=== PATIENT | female | born 1990 | race Caucasian/White ===

== ENCOUNTER 2017-03-23 02:34 | Emergency (ER) | payer OTHER ==
[~2017-03-23] VITALS: Ht 160 cm; Wt 95.5 kg
[2017-03-23 02:37] VITALS: Ht 160 cm; Wt 95.5 kg
--- NOTE | 2017-03-23 02:53 | ERA ---
ER Documentation Chief Complaint Date/Time DATE: 03/23/17 TIME: 02:53 Chief Complaint c/o RUQ pain radiating to back. (+) N/V. HPI The patient is 26-year-old female, presenting with recurrent right upper quadrant abdominal pain around 9 PM after she at around 6 pm. She had similar symptoms previously from gallbladder attack. She complains of vomiting initially food and phlegm, denies fever, dysuria, diarrhea, constipation. she does not smoke nor drink. Past medical history: History of choledocholithiasis, cholelithiasis Past surgical history: ERCP, sphincterotomy with stone removal, 2 ROS All systems reviewed and are negative except as per history of present illness. Medications Home Meds Active Scripts Ibuprofen* (Motrin*) 600 Mg Tab, 600 MG PO Q6, #20 TAB Prov:ROBERTO GARDNER MD 03/23/17 Hydrocodone/Acetaminophen ([place] 5-325 Tablet) 1 Each Tablet, 1 TAB PO Q6H Y for PAIN, #7 TAB Prov:ROBERTO GARDNER MD 03/23/17 Allergies Allergies: Coded Allergies: No Known Allergy (Unverified , 02/25/17) PMhx/Soc History of Surgery: Yes Anesthesia Reaction: No Hx Neurological Disorder: No Hx Respiratory Disorders: No Hx Cardiac Disorders: No Hx Psychiatric Problems: No Hx Miscellaneous Medical Probl: No Hx Alcohol Use: No Hx Substance Use: No Hx Tobacco Use: No Physical Exam Vitals Vital Signs Date Time Temp Pulse Resp B/P Pulse Ox O2 Delivery O2 Flow Rate FiO2 03/23/17 05:28 98.2 72 16 120/56 100 Room Air 03/23/17 05:24 98.3 69 16 119/56 100 Room Air 03/23/17 03:34 98.1 82 18 128/71 98 Room Air 03/23/17 02:37 98.5 90 18 127/72 98 Physical Exam Const: No acute distress. Head: Atraumatic. Eyes: Normal Conjunctiva. ENT: Normal External Ears, Nose and Mouth. Neck: Full range of motion. No meningismus. Resp: Clear to auscultation bilaterally. Cardio: Regular rate and rhythm. Abd: Soft, non distended, normal bowel sounds, Minimal right upper quadrant abdominal tenderness, no right lower quadrant, rigidity, rebound, CVA tenderness Skin: No petechiae or rashes. Back: No midline or flank tenderness. Ext: No cyanosis, or edema. Neur: Awake and alert. No focal deficit Psych: Normal Mood and Affect. Result Diagram: 03/23/17 03303/23/17 033 Results 24 hrs Laboratory Tests Test 03/23/17 03:16 03/23/17 03:30 Bedside Urine pH (LAB) 7.0 Bedside Urine Protein (LAB) 1+ Bedside Urine Glucose (UA) Negative Bedside Urine Ketones (LAB) Negative Bedside Urine Blood Negative Bedside Urine Nitrite (LAB) Negative Bedside Urine Leukocyte Esterase (L Negative White Blood Count 10.510^3/ul Red Blood Count 4.2010^6/ul Hemoglobin 12.2g/dl Hematocrit 36.6% Mean Corpuscular Volume 87.1fl Mean Corpuscular Hemoglobin 29.0pg Mean Corpuscular Hemoglobin Concent 33.3g/dl Red Cell Distribution Width 13.2% Platelet Count 37375^3/UL Mean Platelet Volume 10.4fl Neutrophils % 74.2% Lymphocytes % 19.1% Monocytes % 4.5% Eosinophils % 1.3% Basophils % 0.5% Nucleated Red Blood Cells % 0.0/100WBC Neutrophils # 7.810^3/ul Lymphocytes # 2.010^3/ul Monocytes # 0.510^3/ul Eosinophils # 0.110^3/ul Basophils # 0.110^3/ul Nucleated Red Blood Cells # 0.010^3/ul Sodium Level 144mmol/L Potassium Level 3.8mmol/L Chloride Level 108mmol/L Carbon Dioxide Level 26mmol/L Anion Gap 14 Blood Urea Nitrogen 12mg/dl Creatinine 0.67mg/dl Glucose Level 105mg/dl Calcium Level 9.5mg/dl Total Bilirubin 0.1mg/dl Direct Bilirubin 0.00mg/dl Indirect Bilirubin 0.1mg/dl Aspartate Amino Transf (AST/SGOT) 36IU/L Alanine Aminotransferase (ALT/SGPT) 40IU/L Alkaline Phosphatase 106IU/L Total Protein 8.1g/dl Albumin 4.5g/dl Globulin 3.60g/dl Albumin/Globulin Ratio 1.25 Lipase 67U/L Current Medications Medications (Trade) Dose Ordered Sig/Wanda Route PRN Reason Start Time Stop Time Status Last Admin Dose Admin Sodium Chloride (NS) 1,000 ml @ 1,000 mls/hr Q1H ONCE IV 03/23/17 03:00 03/23/17 03:59 DC 03/23/17 03:40 Morphine Sulfate (morphine) 2 mg ONCE ONCE IV 03/23/17 03:00 03/23/17 03:01 DC 03/23/17 03:40 Ondansetron HCl (Zofran Inj) 4 mg ONCE STAT IV 03/23/17 02:56 03/23/17 02:57 DC 03/23/17 03:40 Hydromorphone HCl (Dilaudid) 1 mg ONCE ONCE IV 03/23/17 04:14 03/23/17 04:15 DC 03/23/17 04:22 Ondansetron HCl (Zofran Inj) 4 mg ONCE ONCE IV 03/23/17 04:14 03/23/17 04:15 DC 03/23/17 04:22 Procedures/MDM MEDICAL MAKING DECISION: The patient is a 26-year-old female, presenting with acute biliary colic. She was treated with 1 L normal saline for clinical dehydration, morphine 2 mg IV, Dilaudid 1 mg IV for pain and Zofran 4 mg IV for now stable with good response. The differential diagnoses considered include but are not limited to cholelithiasis, cholecystitis, cystitis, pancreatitis, hepatitis, gastritis, peptic ulcer disease, gastric ulcer, appendicitis, diverticulitis, cholangitis, choledocholithiasis, partial small bowel obstruction. Departure Diagnosis: Primary Impression: Biliary colic Condition: Good Comments She was discharged with Motrin and [place] I discussed the findings with the patient. I advised the patient to follow-up with her general surgeon in about 1-2 days, sooner if needed and return if any concern. ROBERTO GARDNER MD Mar 23, 2017 02:53
[2017-03-23] MEDS ORDERED: ONDANSETRON 4 MG INJ IV STA (02:56)
[2017-03-23] MEDS ORDERED: morphine 2 MG INJ IV ONE (03:00)
[2017-03-23] MEDS ORDERED: SOD CHLORIDE 0.9% 1,000 ML IV ONE (03:00)
[2017-03-23 03:09] LABS: URINE BLOOD (Dip) POC Negative (NEGATIVE)
[2017-03-23 03:42] LABS: BASOPHIL # 0.1 10^3/ul (0.0-0.1); BASOPHILS % 0.5 % (0.0-2.0); EOSINOPHILS # 0.1 10^3/ul (0.0-0.5); EOSINOPHILS % 1.3 % (0.0-7.0); HEMATOCRIT 36.6 % (37.0-47.0); HEMOGLOBIN 12.2 g/dl (12.0-16.0); LYMPHOCYTES % 19.1 % (15.0-51.0); MEAN CORPUSCULAR HGB CONC 33.3 g/dl (32.0-37.0); MEAN CORPUSCULAR VOLUME 87.1 fl (82.0-101.0); MEAN PLATELET VOLUME 10.4 fl (7.4-10.4); MONOCYTE # 0.5 10^3/ul (0.3-0.9); MONOCYTES % 4.5 % (0.0-11.0); NEUTROPHIL # 7.8 10^3/ul (1.6-7.5); NEUTROPHILS % 74.2 % (39.0-77.0); PLATELET COUNT 311 10^3/UL (140-415); RED CELL DISTRIBUTION WIDTH 13.2 % (11.5-14.5); WHITE BLOOD COUNT 10.5 10^3/ul (4.8-10.8)
[2017-03-23 04:03] LABS: ALBUMIN 4.5 g/dl (3.3-4.9); ALBUMIN/GLOBULIN RATIO 1.25; BILIRUBIN,INDIRECT 0.1 mg/dl (0-1.1); BILIRUBIN,TOTAL 0.1 mg/dl (0.2-1.3); CALCIUM 9.5 mg/dl (8.4-10.2); CREATININE 0.67 mg/dl (0.44-1.00); POTASSIUM 3.8 mmol/L (3.5-5.1); TOTAL PROTEIN 8.1 g/dl (6.1-8.1)
[2017-03-23] MEDS ORDERED: ONDANSETRON 4 MG INJ IV ONE (04:14)
[2017-03-23] MEDS ORDERED: HYDROmorphONE 1 MG/ML SYG IV ONE (04:14)
[2017-03-23] MEDS ORDERED: HYDR-906 PO (05:07)
[2017-03-23] MEDS ORDERED: IBUP-1542 PO (05:08)
[2017-03-23 05:28] VITALS: BP 120/56; PULSE 72; RESP 16; TEMP 98.2
== END 2017-03-23 05:32 | disposition home or self-care (01) ==
LOC: E/R 02:34
DX: K80.50 Calculus of bile duct without cholangitis or cholecystitis without obstruction (principal)
CPT/HCPCS: 36415; 80053; 81003; 83690; 85025; 96374; 96375; 96376; J1170; J2270; J2405; J7030; Z7502

== ENCOUNTER 2017-03-26 01:59 | Inpatient (IN) | payer OTHER ==
[~2017-03-26] VITALS: Ht 162.6 cm; Wt 96.0 kg
[~2017-03-26 01:59] MED LIST: HYDR-906 PO; IBUP-1542 PO
[2017-03-26 02:02] VITALS: Ht 162.6 cm; Wt 96.0 kg
[2017-03-26] MEDS ORDERED: ONDANSETRON 4 MG INJ IV STA (02:14)
[2017-03-26] MEDS ORDERED: morphine 4 MG/ML VIAL IV STA (02:14)
[2017-03-26 02:29] VITALS: TEMP 98.3
[2017-03-26] MEDS ORDERED: HYDROmorphONE 1 MG/ML SYG IV STA (02:51)
[2017-03-26 03:00] LABS: BASOPHIL # 0.1 10^3/ul (0.0-0.1); BASOPHILS % 0.6 % (0.0-2.0); EOSINOPHILS # 0.2 10^3/ul (0.0-0.5); EOSINOPHILS % 1.7 % (0.0-7.0); HEMATOCRIT 35.9 % (37.0-47.0); HEMOGLOBIN 11.9 g/dl (12.0-16.0); LYMPHOCYTES # 2.5 10^3/ul (0.8-2.9); LYMPHOCYTES % 22.6 % (15.0-51.0); MEAN CORPUSCULAR HEMOGLOBIN 28.7 pg (29.0-33.0); MEAN CORPUSCULAR HGB CONC 33.1 g/dl (32.0-37.0); MEAN CORPUSCULAR VOLUME 86.5 fl (82.0-101.0); MEAN PLATELET VOLUME 10.3 fl (7.4-10.4); MONOCYTE # 0.6 10^3/ul (0.3-0.9); MONOCYTES % 5.5 % (0.0-11.0); NEUTROPHIL # 7.6 10^3/ul (1.6-7.5); NEUTROPHILS % 69.3 % (39.0-77.0); PLATELET COUNT 318 10^3/UL (140-415); RED BLOOD COUNT 4.15 10^6/ul (4.20-5.40); RED CELL DISTRIBUTION WIDTH 13.2 % (11.5-14.5)
[2017-03-26 03:26] LABS: ALBUMIN 4.4 g/dl (3.3-4.9); ALBUMIN/GLOBULIN RATIO 1.22; BILIRUBIN,INDIRECT 0.2 mg/dl (0-1.1); BILIRUBIN,TOTAL 0.2 mg/dl (0.2-1.3); CALCIUM 9.4 mg/dl (8.4-10.2); CREATININE 0.65 mg/dl (0.44-1.00); POTASSIUM 3.5 mmol/L (3.5-5.1)
[2017-03-26] MEDS ORDERED: HYDROmorphONE 2 MG/ML SYG IV STA (05:45)
--- NOTE | 2017-03-26 06:59 | HP ---
Date/Time of Note Date/Time of Note DATE: 03/26/17 TIME: 06:50 Assessment/Plan VTE Prophylaxis VTE Prophylaxis Intervention: SCD's Assessment/Plan Assessment/Plan 1. Abdominal pain, most likely from known cholelithiasis -N.p.o. with IV fluid -Pain management -Surgery consult was placed by ER, awaiting evaluation -Notes that the patient was recently admitted here a month ago and underwent ERCP with sphincterotomy and stone removal for a choledocholithiasis. Because of insurance reasons, plan at the time of discharge was for the patient to have outpatient cholecystectomy 2. Mild leukocytosis -See #1 HPI/ROS Admit Date/Time Admit Date/Time Hx of Present Illness This is a 26-year-old female with a history of cholelithiasis and choledocholithiasis who presented to the emergency department complaining of right upper quadrant abdominal pain of 2 days duration. Reported associated nausea and nonbloody nonbilious emesis. Denied fever, chills, shortness of breath or chest pain. Patient was admitted here last month for cholelithiasis and choledocholithiasis. The patient underwent a ERCP with a sphincterotomy and stone removal on 02/27/2017. The plan was for the patient to have a laparoscopic cholecystectomy. However, because of insurance reasons, the patient could not undergo her surgery at [facility]. Consequently, the patient was discharged home to be followed up with outpatient surgery as per the discretion of the patient's insurance. The patient actually came to our ER 3 days ago with similar symptom and was discharged with instruction to follow-up with surgeon for outpatient cholecystectomy. When she presented to the ER today, vitals were stable. Labs shows a WBC of 11 otherwise CBC and CMP within acceptable range. PMH/Family/Social Past Medical History Medical History: gallstones Past Surgical History Past Surgical Hx: other (ERCP with sphincterotomy and stone removal, 2) Social History Alcohol Use: none Smoking Status: Never smoker Drug Use: none Exam/Review of Systems Vital Signs Vitals Vital Signs Date Time Temp Pulse Resp B/P Pulse Ox O2 Delivery O2 Flow Rate FiO2 03/26/17 02:29 98.3 65 16 117/65 98 Room Air Exam Constitutional: alert, oriented, well developed Head: atraumatic, normocephalic Eyes: EOMI, PERRL Respiratory: clear to auscultation, normal air movement Cardiovascular: nl pulses, regular rate and rhythm Gastrointestinal: soft, tender Extremities: normal pulses Labs Result Diagram: 03/26/1723903/26/170 GILMA FERGUSON MD Mar 26, 2017 06:59
[2017-03-26 08:49] VITALS: BP 120/79; RESP 18
[2017-03-26] MEDS ORDERED: morphine 4 MG/ML VIAL IV PRN (09:30)
[2017-03-26] MEDS ORDERED: ONDANSETRON 4 MG INJ IV PRN (09:30)
[2017-03-26] MEDS: SOD CHLORIDE 0.9% 1,000 ML IV SCH ×3 (09:39→18:40)
[2017-03-26 11:40] LABS: ADD UMIC YES; UR AMORPHOUS CRYSTAL MODERATE /HPF (NONE SEEN); UR ASCORBIC ACID NEGATIVE (NEGATIVE); UR BILIRUBIN (Dip) NEGATIVE (NEGATIVE); UR BLOOD (Dip) NEGATIVE (NEGATIVE); UR CLARITY CLOUDY (CLEAR); UR COLOR YELLOW (YELLOW); UR GLUCOSE (Dip) NEGATIVE (NEGATIVE); UR KETONES (Dip) TRACE mg/dL (NEGATIVE); UR LEUKOCYTE ESTERASE (Dip) NEGATIVE Leu/ul (NEGATIVE); UR MUCUS FEW /HPF (NONE SEEN); UR NITRITE (Dip) NEGATIVE (NEGATIVE); UR RBC 0 /HPF (0-5); UR SPECIFIC GRAVITY (Dip) 1.019 (1.003-1.030); UR SQUAMOUS EPITHELIAL CELL FEW /HPF (FEW); UR TOTAL PROTEIN (Dip) NEGATIVE (NEGATIVE); UR UROBILINOGEN (Dip) NEGATIVE (NEGATIVE)
--- NOTE | 2017-03-26 12:12 | RADRPT ---
PROCEDURE: US Abdomen (right upper quadrant). CLINICAL INDICATION: Right upper quadrant abdomen pain. TECHNIQUE: Multiple real-time longitudinal and transverse images of the right upper quadrant of th e abdomen were acquired utilizing a curved array transducer. Images were reviewed on a high-resoluti on PACS workstation. COMPARISON: None FINDINGS: The liver is mildly enlarged measuring 18 cm in length. Color Doppler and pulsed Doppler sonography demonstrate normal antegrade flow in the portal vein. There is no focal hepatic lesion. There are small gallstones in the gallbladder. There is no gallbladder wall thickening or fluid arou nd the gallbladder. The bile ducts are dilated with the common bile duct measuring 8.8 mm in diameter. The visualized portions of the pancreas are unremarkable with obscuration of the tail of the pancrea s. No free fluid is present. The right kidney measures 11.9 x 4.5 cm. There is normal echogenicity of the right kidney. There is no perinephric fluid collection. No hydronephrosis, mass, or calculus is seen. IMPRESSION: 1. Mild hepatomegaly. 2. Small gallstones in the gallbladder. 3. No evidence of cholecystitis. 4. Dilated bile ducts. Correlation with MRCP should be considered. 5. Otherwise unremarkable study. RPTAT: QQ .Asael Medina MD, MD Date Time Electronically viewed and signed by .Asael Medina MD, on 03/26/2017 12:12 .R/
[2017-03-26 14:15] VITALS: BP 122/83; RESP 18
--- NOTE | 2017-03-26 16:32 | PN ---
Date/Time of Note Date/Time of Note DATE: 03/26/17 TIME: 16:29 Assessment/Plan Lines/Catheters IV Catheter Type (from Nrs): Peripheral IV Assessment/Plan Assessment/Plan [facility] Progress Note Date of Service: 03/26/2017 Place of service: [facility] 03/26/2017 Today's Assessment & Plan (please also see the end of this note that contains my initial consultation with the patient during her previous admission that contains pertinent information): Overall stable after admission for abdominal pain which is likely due to biliary system issues. Ultrasound does not show evidence of acute cholecystitis , but it does show dilated bile ducts and for this reason the admission is appropriate and she needs further workup would likely need for ERCP and involvement of Dr. Stiles from gastroenterology. I also strongly recommend that we schedule the patient for a laparoscopic cholecystectomy during this admission and not delay this procedure any longer. I explained the operation in detail as well as the risks, benefits and alternatives to the patient and her and answered all their questions to the best my ability. Patient and family appear to understand and agreed with plans. With above assessment, I've recommended the following for today: 1. Keep in-house and continue current cares 2. MRCP 3. Gastroneurology consultation (much appreciate Dr. Stiles's excellent input) 4. Laparoscopic cholecystectomy Thank you again for your great care of this very pleasant patient and wonderful family. If there are any questions, please feel free to call me at [phone]. Nature of presenting problem: High severity Please note that, given the multiple number of diagnoses or management options, the moderate to extensive amount and/or complexity of data needed to be reviewed , and moderate to high risk of complications and/or morbidity or mortality, this qualifies as high complexity type of decision-making. Disclaimer: Inadvertent spelling and grammatical errors are likely due to EHR/ dictation software use and do not reflect on the quality of delivered patient care. Also, please note that the electronic time recorded on this node does not necessarily reflect the actual time of the visit. Updated clinical summary: A very pleasant 26-year-old lady with choledocholithiasis and possible cholelithiasis versus gallbladder polyp. Status post ERCP with sphincterotomy and stone removal (no stent) [facility] 02/27/[address] Stiles. Discharged home 02/28/2017. Repeat ER visit without admission [facility] 03/23/2017. Repeat ER visit with admission to [facility] 03/26/2017. Comorbidities: 1. BMI 34.7 2. Choledocholithiasis with intrahepatic and extrahepatic bile duct dilatation. Status post ERCP with sphincterotomy and stone removal (no stent) [facility] 02/27/[address] Stiles. Discharged home 2016. Repeat ER visit without admission [facility] 2016. Repeat ER visit with admission to [facility] 2016. [facility] 03/26/17 IMPRESSION: 1. Mild hepatomegaly. ([facility] 03/26/17) 2. Small gallstones in the gallbladder. ([facility] 03/26/17) 3. No evidence of cholecystitis.([facility] 03/26/17) 4. Dilated bile ducts. Correlation with MRCP should be considered.([facility] ) 5. Otherwise unremarkable study. 3. Borderline cardiomegaly chest x-ray 02/23/2017 at [facility] 4. A0 5. Status post (2) Subjective: [No major events or complaints since admission except for her abdominal pain]; [ mild to severe abd pain and under semi-adequate control with medications; no n/v /d; no sob or cp; + flatus; + BM and normal; + activity] Objective: Vitals: See below I's & O's: See below Exam: GENERAL: On exam, the patient was lying in bed and appeared to be [comfortable and in no acute distress]. ABDOMEN: [Soft, mild to moderately tender in the right upper quadrant and nondistended.] [There are no peritoneal signs or guarding.] SKIN: Skin appears to be pink and feels warm to touch. NEUROLOGIC: Patient is [awake, alert, and follows commands appropriately.] Labs: See below The following is my initial consultation note with pertinent information about the patient's history and physical which I am including in this note. [facility] INPATIENT CONSULTATION NOTE DATE OF SERVICE: 02/26/2017 PLACE OF SERVICE: [facility], floor ASSESSMENT AND PLAN: A very-pleasant 26-year-old young lady with a few comorbidities including BMI 34.7, admitted with choledocholithiasis, intrahepatic and extrahepatic bile duct dilatation and abnormal liver function and injury parameters reminiscent of symptomatic choledocholithiasis. There may also be cholelithiasis although I do not believe that the patient has acute cholecystitis. Patient certainly can benefit from ERCP and common bile duct clearance, to be followed by elective or semielective laparoscopic cholecystectomy. We will attempt to do this tomorrow pending patient's clinical condition. I discussed all of this with the patient and her and answered all of their questions to the best of my ability. Patient and her appear to understand and agreed with the plans. With above assessment, I've recommended the followin. Continue current cares 2. ERCP 3. Lap félix scheduled for 02/27/2017 in the morning pending clinical stability Thank you very much for having me involved in the care of this very pleasant patient and wonderful family. If you have any questions, please feel free to contact me at [phone]. Nature of presenting problem: low, moderate, high severity Please note that, given the minimal, limited, multiple, extensive number of diagnoses or management options, the minimal or none, limited, moderate, extensive amount and/or complexity of data needed to be reviewed, and minimal, low, moderate, high risk of complications and/or morbidity or mortality, this qualifies as straightforward, low complexity, moderate complexity, high complexity type of decision-making. Disclaimer: Inadvertent spelling and grammatical errors are likely due to EHR/ dictation software use and do not reflect on the quality of delivered patient care. Also, please note that the electronic time recorded on this node does not necessarily reflect the actual time of the visit. Updated clinical summary: A very pleasant 26-year-old lady with choledocholithiasis and possible cholelithiasis versus gallbladder polyp. Comorbidities: 1. BMI 34.7 2. Choledocholithiasis with intrahepatic and extrahepatic bile duct dilatation 3. Borderline cardiomegaly chest x-ray 02/23/2017 at [facility] 4. A0 5. Status post (2) CONSULTATION REQUESTED BY: GUERITA Madera HISTORY OF PRESENT ILLNESS: The patient is a very pleasant 26-year-old lady with above-mentioned comorbidities whom we were kindly asked consult regarding management of her choledocholithiasis and possible cholelithiasis. Patient experienced abdominal pain that brought her to [facility] on 02/22/2017 with admission. Associated nausea and vomiting noted. No diarrhea or constipation or other changes to bowel or bladder habits. No blood in the stool or urine. Pain was in the right upper quadrant and without radiation. No prior similar episodes in the past. Workup included an MRCP which demonstrated stones within bile duct with intrahepatic and extrahepatic bile duct dilatation. There are also a few small areas in the gallbladder that could be gallstones versus gallbladder polyps. Patient left AMA from [facility] and came to [facility] do the previous relationships with us from her time of . No major complaints during my visit. Laboratory values at [facility] showed slightly elevated total bilirubin of 1.8 that decreased to 0.9 on hospital day #2, alkaline phosphatase 168, AST 195, and ALT 434. Albumin after hydration was 3.7 ALLERGIES: NO KNOWN DRUG ALLERGIES MEDICATIONS Documented in the electronic records and reviewed by me. Please see the electronic records for details, as well as details for inpatient medications which were also reviewed by me. SOCIAL HISTORY: The patient lives with family that includes her and their [id number]-cit child and 4-year-old child.-Tob;-ETOH;-IVDU FAMILY HISTORY: There are no significant medical, surgical or oncologic issues in the family as reported by the patient or reflected in the chart. REVIEW OF SYSTEMS: Other than mentioned above, there were no other pertinent positives or pertinent negatives in an otherwise complete 14 point review of systems. PHYSICAL EXAMINATION GENERAL: The patient appears to be a very pleasant lady of descent lying in bed, appearing stated age, and otherwise in no acute distress. BMI: 34.7 VITAL SIGNS: AVSS (please also see auto important data if available as well as the electronic records) HEENT: Normocephalic and atraumatic. Extraocular muscles and hearing are grossly intact bilaterally and symmetrically. Sclerae are nonicteric. Oral cavity is clear; oral mucosa appear to be pink and moist. Dentition: fair. NECK: Supple. There is no lymphadenopathy or JVD. There is no submental, submandibular or supraclavicular lymphadenopathy. CHEST: Rises symmetrically with each breath; patient is breathing comfortably. There are no audible wheezes, rales or rhonchi on the gross exam. HEART: Pulse is regular and palpable on the right wrist. Capillary refill is normal. Carotid pulses are palpable bilaterally and symmetrically in the neck. EXTREMITIES: Lower extremities contain no pitting edema around the ankles bilaterally and symmetrically. ABDOMEN: Abdomen is soft, minimally tender to palpation in the right upper quadrant and mid upper quadrants and nondistended. No evidence of ascites, organomegaly, caput medusae, engorged subcutaneous veins, or other abnormalities. There are no peritoneal signs or guarding. SKIN: Appears to be pink and feels warm to touch. NEUROLOGIC: Awake, alert, and follows commands appropriately. LABORATORY DATA: See below. Slightly elevated total bilirubin of 1.8 that decreased to 0.9 on hospital day #2, alkaline phosphatase 168, AST 195, and ALT 434. Albumin after hydration was 3.7 IMAGING: See electronic chart. Please note that I've personally reviewed all pertinent available images and I agree in general with their overall reported findings. Exam/Review of Systems Vital Signs Vitals Vital Signs Date Time Temp Pulse Resp B/P Pulse Ox O2 Delivery O2 Flow Rate FiO2 03/26/17 14:15 98.4 80 18 122/83 99 03/26/17 07:09 Room Air Results Result Diagram: 03/26/17 0240 03/26/17 0240 LEXX MOSS M.D. Mar 26, 2017 16:32
--- NOTE | 2017-03-26 18:58 | QN ---
Documentation Comment Was informed of the patient's admission and potential need for ERCP. Given the recent ERCP with sphincterotomy and stone removal and the finding of dilatation of the biliary tree at that time as well as essentially normal liver function test I would definitely wait for MRCP to determine the need of further endoscopic intervention. I strongly agree with Dr. Valadez's recommendation to complete laparoscopic cholecystectomy during this hospitalization. I will monitor situation and proceed accordingly ALLEGRA CHILDERS MD Mar 26, 2017 18:58
[2017-03-26 20:00] VITALS: BP 110/63; RESP 20
[2017-03-27] VITALS (18 sets, daily range): BP systolic 101–119; BP diastolic 61–79; PULSE 72–84; RESP 15–20
--- NOTE | 2017-03-27 00:03 | RADRPT ---
PROCEDURE: MR Abdomen and MRCP without Contrast. CLINICAL INDICATION: 26 years of age, female. Evaluate for choledocholithiasis. Right upper quadra nt pain. TECHNIQUE: MRI of the abdomen and MRCP was performed without intravenous contrast. MRI of the abdo men was performed as: Axial and coronal SS-T2 FSE, axial SS-T2FSE with fat suppression . MRCP seque nces include coronal T2 3D RST images and 3-D coronal rotating MIP images of the biliary tree. COMPARISON: Ultrasound from earlier the same day FINDINGS: There is breathing motion artifact on the MRCP sequences that degrades image quality. Nonetheless, d iagnostic information is provided. Lung Bases: Normal. Liver: Normal noncontrast appearance. Gall Bladder: Gallbladder is moderately distended with wall edema and wall thickening measuring 0.5 cm. Small gallstones seen on ultrasound are not seen on MRI that is technical. Bile ducts: Negative for intrahepatic or extrahepatic biliary duct dilatation. Common bile duct tee ures 0.4 cm. Negative for evidence of common duct stones. Pancreatic duct: Pancreatic duct is not well visualized. Negative for dilatation of the main pancrea tic duct. Without visualizing the pancreatic duct with confidence, the study does not evaluate for d ivisum. Pancreas: Normal noncontrast appearance on T2-weighted images. Spleen: Normal noncontrast appearance. Adrenal glands: Normal. Kidneys: Normal noncontrast appearance. Vasculature: Normal noncontrast appearance. Lymph nodes: No enlarged lymph nodes. Bowel: Normal. Peritoneal space: No free fluid. Abdominal wall: Normal. Musculoskeletal: No suspicious bone lesions. IMPRESSION: Small gallstones seen on ultrasound are not well seen with MRI for technical reasons. Gallbladder is moderately distended with diffuse wall edema and wall thickening that may be due to acute cholecyst itis. Recommend clinical correlation. Differential diagnosis for gallbladder wall thickening include s liver disease. Negative for evidence of common duct stones or biliary obstruction. RPTAT: HCTS Physician Cristy Date Time Electronically viewed and signed by Physician Cristy on 03/27/2017 00:03 /
[2017-03-27 06:28] LABS: BASOPHILS % 0.5 % (0.0-2.0); EOSINOPHILS # 0.2 10^3/ul (0.0-0.5); EOSINOPHILS % 3.2 % (0.0-7.0); HEMATOCRIT 33.9 % (37.0-47.0); HEMOGLOBIN 11.1 g/dl (12.0-16.0); LYMPHOCYTES # 2.3 10^3/ul (0.8-2.9); LYMPHOCYTES % 30.2 % (15.0-51.0); MEAN CORPUSCULAR HEMOGLOBIN 29.2 pg (29.0-33.0); MEAN CORPUSCULAR HGB CONC 32.7 g/dl (32.0-37.0); MEAN CORPUSCULAR VOLUME 89.2 fl (82.0-101.0); MEAN PLATELET VOLUME 10.5 fl (7.4-10.4); MONOCYTE # 0.6 10^3/ul (0.3-0.9); MONOCYTES % 8.2 % (0.0-11.0); NEUTROPHIL # 4.3 10^3/ul (1.6-7.5); NEUTROPHILS % 57.5 % (39.0-77.0); PLATELET COUNT 282 10^3/UL (140-415); RED CELL DISTRIBUTION WIDTH 13.2 % (11.5-14.5); WHITE BLOOD COUNT 7.5 10^3/ul (4.8-10.8)
[2017-03-27 06:45] LABS: INR 1.01; PROTIME 13.3 Sec (12.2-14.2)
[2017-03-27 06:47] LABS: PARTIAL THROMBOPLASTIN TIME 29.6 Sec (25.0-35.0)
[2017-03-27 06:50] LABS: ALBUMIN 3.3 g/dl (3.3-4.9); ALBUMIN/GLOBULIN RATIO 1.03; BILIRUBIN,INDIRECT 0.4 mg/dl (0-1.1); BILIRUBIN,TOTAL 0.4 mg/dl (0.2-1.3); CALCIUM 8.9 mg/dl (8.4-10.2); CREATININE 0.54 mg/dl (0.44-1.00); POTASSIUM 3.8 mmol/L (3.5-5.1); TOTAL PROTEIN 6.5 g/dl (6.1-8.1)
[2017-03-27] MEDS: SOD CHLORIDE 0.9% 1,000 ML IV SCH (06:55)
[2017-03-27 07:00] LABS: MAGNESIUM 1.9 mg/dl (1.7-2.5); PHOSPHORUS 3.6 mg/dl (2.5-4.9)
[2017-03-27] MEDS ORDERED: BUPIVACAINE 0.5%/EPI (SDV) 10 ML INJ ONE (09:33)
--- NOTE | 2017-03-27 09:38 | HPN ---
Date/Time of Note Date/Time of Note DATE: 03/27/17 TIME: 09:38 Interval H&P Admission Note Pt. seen H&P reviewed: No system changes Pt. seen H&P reviewed. No system changes (I attest that I have seen and examined the patient and reviewed the operation in detail, as well as its risks , benefits and alternatives of the operation). I attest that I have seen and examined the patient and reviewed in detail the operation, and its associated risks, benefits and alternative. I have answered all the patient's questions to the best of my ability and the patient wishes to proceed. Please refer to rest of electronic medical record for additional updates. LEXX MOSS M.D. Mar 27, 2017 09:38
[2017-03-27] MEDS ORDERED: ROCURONIUM 50 MG INJ ONE (09:41)
[2017-03-27] MEDS ORDERED: LIDOCAINE 2% (SDV) 5 ML INJ ONE (09:41)
[2017-03-27] MEDS ORDERED: PROPOFOL 20 ML ONE (09:41)
[2017-03-27] MEDS ORDERED: MEPERIDINE 100 MG INJ ONE (09:41)
[2017-03-27] MEDS ORDERED: NEOSTIGMINE 3 MG/3 ML SYRINGE ONE ×2 (09:41→10:49)
[2017-03-27] MEDS ORDERED: SUCCINYLCHOLINE CHLORIDE 100 MG/5 ML SYG IV ONE (09:41)
[2017-03-27] MEDS ORDERED: GLYCOPYRROLATE 0.4 MG INJ ONE ×3 (09:41→10:49)
[2017-03-27] MEDS ORDERED: EPHEDrine SULFATE 50 MG/5 ML SYG IV PRN (10:00)
[2017-03-27] MEDS ORDERED: MEPERIDINE 25 MG INJ IV PRN (10:00)
[2017-03-27] MEDS ORDERED: FENTAnyl 50 MCG/ML VIAL IV PRN ×3 (10:00)
[2017-03-27] MEDS ORDERED: DIPHENHYDRAMINE 50 MG INJ IV PRN (10:00)
[2017-03-27] MEDS ORDERED: HYDROmorphONE (0.2 MG/ML) 10ML SYG IV PRN ×3 (10:00)
[2017-03-27] MEDS ORDERED: MIDAZOLAM 1 MG/ML 2 ML INJ IV PRN (10:00)
[2017-03-27] MEDS ORDERED: ONDANSETRON 4 MG INJ IV PRN (10:00)
[2017-03-27] MEDS ORDERED: hydrALAzine 20 MG INJ IV PRN (10:00)
[2017-03-27] MEDS ORDERED: OXYCODONE/ACETAMINOPHEN (5/325) TAB PO PRN ×2 (10:00)
[2017-03-27] MEDS ORDERED: LABETALOL HCL 20MG INJ IV PRN (10:00)
[2017-03-27] MEDS ORDERED: METOCLOPRAMIDE 10 MG INJ IV PRN (10:00)
[2017-03-27] MEDS ORDERED: ONDANSETRON 4 MG INJ ONE (10:49)
[2017-03-27] MEDS ORDERED: CEFAZOLIN 1 GM INJ ONE (10:49)
[2017-03-27] MEDS ORDERED: METOCLOPRAMIDE 10 MG INJ ONE (10:50)
[2017-03-27] MEDS ORDERED: NA PHOSPHATE/BIPHOS 133 ML ENEMA PR PRN (11:30)
[2017-03-27] MEDS ORDERED: DOCUSATE SODIUM 100 MG CAP PO PRN (11:30)
[2017-03-27] MEDS ORDERED: BISACODYL 10 MG SUPP PR PRN (11:30)
[2017-03-27] MEDS ORDERED: HYDROmorphONE 1 MG/ML SYG IV PRN (11:30)
[2017-03-27] MEDS ORDERED: HYDROCODONE/APAP (5/325) TAB PO PRN ×2 (11:30)
--- NOTE | 2017-03-27 11:34 | OPR ---
Date/Time of Note Date/Time of Note DATE: 03/27/17 TIME: 11:33 Operative Report Surgeon see signature line Operative\Procedure Findings [facility] INPATIENT OPERATIVE NOTE PLACE OF SERVICE: [facility] DATE OF SURGERY: 03/27/2017 PREOPERATIVE DIAGNOSIS: 1. Acute cholecystitis with recent choledocholithiasis and possible cholelithiasis versus gallbladder polyp. Status post ERCP with sphincterotomy and stone removal (no stent) [facility] 02/27/[address] Stiles. 2. BMI 34.7 3. Choledocholithiasis with intrahepatic and extrahepatic bile duct dilatation. Status post ERCP with sphincterotomy and stone removal (no stent) [facility] 02/27/[address] Stiles. Discharged home 2016. Repeat ER visit without admission [facility] 2016. Repeat ER visit with admission to [facility] 03/26/2017. POSTOPERATIVE DIAGNOSIS: 1. Acute cholecystitis with gallbladder hydrops and with recent choledocholithiasis and possible cholelithiasis versus gallbladder polyp. Status post ERCP with sphincterotomy and stone removal (no stent) [facility] 02/27/[address] Stiles. 2. BMI 34.7 3. Choledocholithiasis with intrahepatic and extrahepatic bile duct dilatation. Status post ERCP with sphincterotomy and stone removal (no stent) [facility] 02/27/[address] Stiles. Discharged home 2016. Repeat ER visit without admission [facility] 2016. Repeat ER visit with admission to [facility] 03/26/2017. OPERATION: 1. Laparoscopic cholecystectomy SURGEON: Lexx Moss M.D. GRADE SETTER: None ANESTHESIA: General endotracheal tube anesthesia ANESTHESIOLOGIST: Juany Rodriguez M.D. BRIEF SUMMARY: An otherwise uncomplicated laparoscopic cholecystectomy was performed with findings of acute cholecystitis with gallbladder hydrops. Updated clinical summary: A very pleasant 26-year-old lady with choledocholithiasis and possible cholelithiasis versus gallbladder polyp. Status post ERCP with sphincterotomy and stone removal (no stent) [facility] 02/27/[address] Stiles. Discharged home 02/28/2017. Repeat ER visit without admission [facility] 03/23/2017. Repeat ER visit with admission to [facility] 03/26/2017. Comorbidities: 1. BMI 34.7 2. Choledocholithiasis with intrahepatic and extrahepatic bile duct dilatation. Status post ERCP with sphincterotomy and stone removal (no stent) [facility] 02/27/[address] Stiles. Discharged home 2016. Repeat ER visit without admission [facility] 2016. Repeat ER visit with admission to [facility] 2016. BRIEF HISTORY: The patient is a very pleasant 26-year-old lady with choledocholithiasis and possible cholelithiasis versus gallbladder polyp. Status post ERCP with sphincterotomy and stone removal (no stent) [facility] 02/27/[address] Stiles. Discharged home 02/28/2017. Repeat ER visit without admission [facility] 03/23/2017. Repeat ER visit with admission to [facility] 03/26/2017. MRCP 03/26/2017 showed no evidence of choledocholithiasis, but evidence of acute cholecystitis. I met with the patient and family and counseled them regarding the possible options of treatment, and I strongly suggested a laparoscopic, possible open cholecystectomy. We reviewed the operation in detail as well as the risks, benefits, alternatives, and expected outcomes of this operation. After careful consideration of all the risks, benefits, and alternatives, the patient and family appeared to understand those risks and wished to proceed with surgery. For a detailed report of my consultation with patient and family, please refer to my separate consultation note. STATEMENT OF THE INFORMED CONSENT: The patient and family appeared to understand the risks of the operation to include, but not be limited to risk of postoperative pain and scar tissue, possible infection or bleeding requiring other interventions such as opening the wound, placement of drainage catheters, or other operative interventions; possible injury to surrounding to structures including bowel, bladder, bile duct, or blood vessels, or solid organs such as liver, kidney, or pancreas requiring other interventions or procedures; possible leakage of bile from surgical clip sites, suture lines, or worse, from common bile duct injury, causing significant increase in morbidity and mortality and requiring multiple interventions including but not limited to, placement of drainage catheters, imaging studies, as well as operative interventions; possible other source of sepsis such as urinary tract infections or pneumonias, or other sources of potentially life threatening problems such as deep venous thrombus formation causing pulmonary embolism, myocardial arrhythmias and infarctions, and even . After careful consideration of all their options, the patient and family appeared to understand and wished to proceed with surgery. DESCRIPTION OF PROCEDURE: After obtaining informed consent, the patient was brought into the operating room and was placed in a normal supine position, where successful general endotracheal tube anesthesia was performed. The patient 's abdominal skin was prepped and draped, from the nipple line down to the level of the groins, in the usual sterile fashion. Intravenous access was already in place, and appropriately chosen and dosed prophylactic intravenous antimicrobials were administered. We then called a surgical time-out where patient's identification, date of , nature of the operation, allergies, presence of intravenous antimicrobials, presence of needed equipment, and any other concerns were reviewed and agreed upon by all members of the operating room team. We then started the operation by placing a 5-mm skin incision in the right- upper quadrant, subcostal midclavicular line, and introduced a 5-mm [employer] trocar into the peritoneal space, visualizing all the layers of the abdominal wall as we entered. Note that there was no indication of any injury to underlying structures once we entered the peritoneum. We insufflated the abdominal cavity to a maximum pressure of 15 mmHg, again, confirmed lack of any injury to underlying structures prior to visualizing the rest of the abdominal cavity. We found the fundus of the gallbladder to be visible. There was no evidence of malignancy. No evidence of calcifications or significant issues with adhesions, or other abnormalities. The liver appeared to be healthy. With this information, we went a head and placed the other trocars under direct visualization, after injecting their sites with 0.25% Marcaine with epinephrine , placing a 5-mm trocar in the umbilical midline area, a 5-mm trocar in the right anterior axillary line, and a 12-mm trocar in the midline subxiphoid region. With our instruments in place, we had excellent visualization and access to the right-upper quadrant. We then decompressed the gallbladder using the laparoscopic needle and suction, removing what appeared to be gallbladder hydrops, before we grasped the fundus of the gallbladder and pointed up towards the right-upper quadrant. There was mild omental adhesions onto the infundibulum which we took down with judicious use of cautery, as well as meticulous blunt dissection. We were then able to grasp the infundibulum and pull it out in order to expose the critical triangle of Calot. We then placed our usual serosal cuts along the long axis of the gallbladder 1 cm away from its attachment to the liver bed up towards the fundus , and then joined these 2 lines under the infundibulum, taking care not to deliver any energy to underlying structures. Due to extent of inflammation in the area of triangle of Calot low, I decided to maximize the degree of safety of the operation by taking the gallbladder top-down which we accomplished using cautery. Two small bleeders in the gallbladder bed were controlled with one single firing of the 10 mm clip health education coordinator each. We then performed meticulous dissection to identify and circumferentially isolate both the cystic duct and cystic artery, prior to transecting them between 2 surgical Endoclips, proximally and one distally on the cystic artery and vascular (white) load of the Endo INDIO stapler on the cystic duct given the slightly larger than what 10 mm clip health education coordinator diameter could handle, and only after making sure that these were the only 2 structures going into the gallbladder. We then shaved the gallbladder off the gallbladder bed using cautery, and then delivered it out inside of an EndoCatch bag through the 12-mm trocar site without enlarging the fascia or contaminating the wound. The gallbladder was sent to Pathology for evaluation. Returning to the abdominal cavity, we ensured that there was adequate hemostasis and bile-stasis prior to removal of all of or equipment, including the pneumoperitoneum, and then reapproximating the 12-mm trocar site with one [id number] 0 Vicryl suture, followed by washing the wounds with copious amounts of normal saline, and then reapproximating the skin using interrupted 4- 0 Monocryl sutures. Light dressing was then applied. At the end of the operation, both the sponge count and needle count were reportedly correct x2. The patient tolerated the procedure without any reported complications. ESTIMATED BLOOD LOSS: Less than 10 mL. BLOOD OR BLOOD PRODUCT TRANSFUSIONS: None to my knowledge. SPECIMENS: 1. Gallbladder COMPLICATIONS: None. DISPOSITION: Recovery area. Disclaimer: Inadvertent spelling and grammatical errors are likely due to EHR/ dictation software use and do not reflect on the quality of delivered patient care. LEXX MOSS M.D. Mar 27, 2017 11:34
[2017-03-27] MEDS: HYDROmorphONE 1 MG/ML SYG IV PRN ×3 (12:44→23:23)
[2017-03-27] MEDS: D5W-0.45 NACL + KCL 20 MEQ 1,000 ML IV SCH ×3 (12:45→23:20)
--- NOTE | 2017-03-27 15:14 | PN ---
Date/Time of Note Date/Time of Note DATE: 03/27/17 TIME: 15:10 Assessment/Plan VTE Prophylaxis VTE Prophylaxis Intervention: LMWH Lines/Catheters IV [facility] Peripheral IV Assessment/Plan Chief Complaint/Hosp Course 1. Acute cholecystitis. Status post laparoscopic cholecystectomy. Continue pain control. Advance diet as per surgery. Encourage incentive spirometry and ambulation. 2. Cholelithiasis with intrahepatic and extrahepatic duct dilatation. Status post ERCP with sphincterotomy and stone removal on 02/27/2017. 3. Obesity. BMI of 34.7 kg/m. Weight reduction advised. 4. Fluids, electrolytes, and nutrition. Clear liquid diet. Advance diet as tolerated. 5. DVT prophylaxis. Subcutaneous Lovenox. 6. Plan. Continue postoperative care. Encourage frequent ambulation and frequent use of incentive spirometry. Case discussed with Dr. Lira. Problems: Subjective 24 Hr Interval Summary Free Text/Dictation Status post laparoscopic cholecystectomy today. Exam/Review of Systems Vital Signs Vitals Vital Signs Date Time Temp Pulse Resp B/P Pulse Ox O2 Delivery O2 Flow Rate FiO2 03/27/17 13:25 98.5 76 18 104/64 99 03/27/17 12:24 Room Air 03/27/17 11:20 8.0 Intake and Output 03/26/17 03/26/17 03/27/17 15:00 23:00 07:00 Intake Total 1500 ml 1000 ml Balance 1500 ml 1000 ml Exam General: Obese 26 year-old female lying in bed in no apparent distress. HEENT: Normocephalic, atraumatic. Eyes: Anicteric sclerae, conjunctivae clear. ENT: Nasal septum midline, oral mucosa moist. Neck supple, no JVD noticed. Respiratory: Bilaterally clear breath sounds. No use of accessory muscles of respiration. No adventitious breath sounds. Cardiovascular: S1, S2 heard. No murmurs or gallops. Abdomen: Tape over laparoscopic incision sites. Herminia-incisional tenderness.. Bowel sounds positive in all 4 quadrants. Genitourinary: Deferred. Extremities: No cyanosis, no clubbing, no edema. Peripheral pulses palpable. Neurologic: Cranial nerves II through XII grossly intact. The patient is awake, alert, and oriented. Skin: Normal skin turgor. No skin rashes. Results Result Diagram: 03/27/17 0552 03/27/17 0552 Results 24 hrs Laboratory Tests Test 03/27/17 05:52 White Blood Count 7.5 # Red Blood Count 3.80 L Hemoglobin 11.1 L Hematocrit 33.9 L Mean Corpuscular Volume 89.2 Mean Corpuscular Hemoglobin 29.2 Mean Corpuscular Hemoglobin Concent 32.7 Red Cell Distribution Width 13.2 Platelet Count 282 Mean Platelet Volume 10.5 H Neutrophils % 57.5 Lymphocytes % 30.2 Monocytes % 8.2 Eosinophils % 3.2 Basophils % 0.5 Nucleated Red Blood Cells % 0.0 Neutrophils # 4.3 Lymphocytes # 2.3 Monocytes # 0.6 Eosinophils # 0.2 Basophils # 0.0 Nucleated Red Blood Cells # 0.0 Prothrombin Time 13.3 Prothrombin Time Ratio 1.0 INR International Normalized Ratio 1.01 Activated Partial Thromboplast Time 29.6 Sodium Level 143 Potassium Level 3.8 Chloride Level 109 Carbon Dioxide Level 27 Anion Gap 11 Blood Urea Nitrogen 6 L Creatinine 0.54 Glucose Level 84 Calcium Level 8.9 Phosphorus Level 3.6 Magnesium Level 1.9 Total Bilirubin 0.4 Direct Bilirubin 0.00 Indirect Bilirubin 0.4 Aspartate Amino Transf (AST/SGOT) 28 Alanine Aminotransferase (ALT/SGPT) 42 Alkaline Phosphatase 85 Total Protein 6.5 # Albumin 3.3 # Globulin 3.20 Albumin/Globulin Ratio 1.03 Medications Medications Current Medications Morphine Sulfate (morphine) 4 mg Q3H PRN IV Pain Last administered on 10:25; Admin Dose 4 MG; Start 03/26/17 at 09:30 Ondansetron HCl 4 mg 4 mg Q6H PRN IV NAUSEA AND/OR VOMITING Last administered on 03/27/17 11:59; Admin Dose 4 MG; Start 03/26/17 at 09:30 Potassium Chloride/Dextrose/ Sod Cl (D5-1/2ns + KCl 20 Meq) 1,000 ml @ 100 mls/ hr Q10H IV Last administered on 03/27/17 12:45; Admin Dose 100 MLS/HR; Start 03/27/17 at 11:24 Acetaminophen/ Hydrocodone Bitart ([place] (5/325)) 1 tab Q4H PRN PO PAIN LEVEL 4 -7; Start 03/27/17 at 11:30 Acetaminophen/ Hydrocodone Bitart ([place] (5/325)) 2 tab Q4H PRN PO PAIN LEVEL 7 -10; Start 03/27/17 at 11:30 Hydromorphone HCl (Dilaudid) 0.5 mg Q2H PRN IV PAIN; Start 03/27/17 at 11:30 Hydromorphone HCl (Dilaudid) 1 mg Q2H PRN IV PAIN Last administered on t 12:44; Admin Dose 1 MG; Start 03/27/17 at 11:30 Docusate Sodium (Colace) 100 mg BID PRN PO CONSTIPATION; Start 03/27/17 at 11: 30 Bisacodyl (Dulcolax Supp) 10 mg BID PRN [place] CONSTIPATION; Start 03/27/17 at 11: 30 Sodium Biphosphate/ Sodium Phosphate (Fleet Enema) 133 ml BID PRN [place] CONSTIPATION; Start 03/27/17 at 11:30 Famotidine (Pepcid Iv) 20 mg DAILY IV ; Start 03/28/17 at 09:00 Enoxaparin Sodium (Lovenox) 40 mg DAILY SC ; Start 03/28/17 at 09:00 BLAS CORTES NP Mar 27, 2017 15:14
[2017-03-28 02:00] VITALS: BP 104/63; RESP 18
[2017-03-28] MEDS: HYDROmorphONE 1 MG/ML SYG IV PRN ×5 (05:58→23:21)
[2017-03-28 06:26] LABS: BASOPHILS % 0.5 % (0.0-2.0); EOSINOPHILS # 0.2 10^3/ul (0.0-0.5); EOSINOPHILS % 2.4 % (0.0-7.0); HEMATOCRIT 34.1 % (37.0-47.0); HEMOGLOBIN 11.1 g/dl (12.0-16.0); LYMPHOCYTES # 2.2 10^3/ul (0.8-2.9); LYMPHOCYTES % 28.2 % (15.0-51.0); MEAN CORPUSCULAR HEMOGLOBIN 29.1 pg (29.0-33.0); MEAN CORPUSCULAR HGB CONC 32.6 g/dl (32.0-37.0); MEAN CORPUSCULAR VOLUME 89.3 fl (82.0-101.0); MEAN PLATELET VOLUME 10.2 fl (7.4-10.4); MONOCYTE # 0.6 10^3/ul (0.3-0.9); MONOCYTES % 7.9 % (0.0-11.0); NEUTROPHIL # 4.7 10^3/ul (1.6-7.5); NEUTROPHILS % 60.9 % (39.0-77.0); PLATELET COUNT 284 10^3/UL (140-415); RED BLOOD COUNT 3.82 10^6/ul (4.20-5.40); RED CELL DISTRIBUTION WIDTH 13.2 % (11.5-14.5); WHITE BLOOD COUNT 7.8 10^3/ul (4.8-10.8)
[2017-03-28 06:41] LABS: PARTIAL THROMBOPLASTIN TIME 30.7 Sec (25.0-35.0)
[2017-03-28 06:42] LABS: ALBUMIN 3.3 g/dl (3.3-4.9); ALBUMIN/GLOBULIN RATIO 1.1; BILIRUBIN,INDIRECT 0.3 mg/dl (0-1.1); BILIRUBIN,TOTAL 0.3 mg/dl (0.2-1.3); CREATININE 0.56 mg/dl (0.44-1.00); POTASSIUM 3.8 mmol/L (3.5-5.1); TOTAL PROTEIN 6.3 g/dl (6.1-8.1)
[2017-03-28 06:45] LABS: INR 0.99; PROTIME 13.1 Sec (12.2-14.2)
[2017-03-28 06:47] LABS: MAGNESIUM 1.9 mg/dl (1.7-2.5); PHOSPHORUS 3.8 mg/dl (2.5-4.9)
[2017-03-28] MEDS: D5W-0.45 NACL + KCL 20 MEQ 1,000 ML IV SCH ×2 (07:24→09:41)
[2017-03-28 07:50] VITALS: BP 106/58; RESP 18
[2017-03-28] MEDS: FAMOTIDINE 20 MG INJ IV SCH (08:36)
[2017-03-28] MEDS: ENOXAPARIN 40 MG/0.4 ML SYG SC SCH (08:40)
--- NOTE | 2017-03-28 11:40 | PN ---
Date/Time of Note Date/Time of Note DATE: 03/28/17 TIME: 11:38 Assessment/Plan VTE Prophylaxis VTE Prophylaxis Intervention: LMWH Lines/Catheters IV [facility] ([facility] [place] Lock Urinary Cath still in place: No Assessment/Plan Chief Complaint/Hosp Course 1. Acute cholecystitis. Status post laparoscopic cholecystectomy. Continue pain control. Advance diet as per surgery. Encourage incentive spirometry and ambulation. 2. Cholelithiasis with intrahepatic and extrahepatic duct dilatation. Status post ERCP with sphincterotomy and stone removal on 02/27/2017. 3. Obesity. BMI of 34.7 kg/m. Weight reduction advised. 4. Fluids, electrolytes, and nutrition. Soft diet. Advance diet as tolerated. 5. DVT prophylaxis. Subcutaneous Lovenox. 6. Plan. Continue postoperative care. Encourage frequent ambulation and frequent use of incentive spirometry. Discharge the patient home once cleared by surgery. Case discussed with Dr. Lira. Problems: Subjective 24 Hr Interval Summary Free Text/Dictation Complains of incisional pain. Has not started passing gas. Exam/Review of Systems Vital Signs Vitals Vital Signs Date Time Temp Pulse Resp B/P Pulse Ox O2 Delivery O2 Flow Rate FiO2 03/28/17 07:50 97.7 72 18 106/58 98 03/27/17 12:24 Room Air 03/27/17 11:20 8.0 Intake and Output 03/27/17 03/27/17 03/28/17 15:00 23:00 07:00 Intake Total 550 ml 1760 ml 1600 ml Output Total 10 ml Balance 540 ml 1760 ml 1600 ml Exam General: Obese 26 year-old female lying in bed in no apparent distress. HEENT: Normocephalic, atraumatic. Eyes: Anicteric sclerae, conjunctivae clear. ENT: Nasal septum midline, oral mucosa moist. Neck supple, no JVD noticed. Respiratory: Bilaterally clear breath sounds. No use of accessory muscles of respiration. No adventitious breath sounds. Cardiovascular: S1, S2 heard. No murmurs or gallops. Abdomen: Tape over laparoscopic incision sites. Herminia-incisional tenderness.. Bowel sounds positive in all 4 quadrants. Genitourinary: Deferred. Extremities: No cyanosis, no clubbing, no edema. Peripheral pulses palpable. Neurologic: Cranial nerves II through XII grossly intact. The patient is awake, alert, and oriented. Skin: Normal skin turgor. No skin rashes. Results Result Diagram: 03/28/17 0554 03/28/17 0554 Results 24 hrs Laboratory Tests Test 03/28/17 05:54 White Blood Count 7.8 Red Blood Count 3.82 L Hemoglobin 11.1 L Hematocrit 34.1 L Mean Corpuscular Volume 89.3 Mean Corpuscular Hemoglobin 29.1 Mean Corpuscular Hemoglobin Concent 32.6 Red Cell Distribution Width 13.2 Platelet Count 284 Mean Platelet Volume 10.2 Neutrophils % 60.9 Lymphocytes % 28.2 Monocytes % 7.9 Eosinophils % 2.4 Basophils % 0.5 Nucleated Red Blood Cells % 0.0 Neutrophils # 4.7 Lymphocytes # 2.2 Monocytes # 0.6 Eosinophils # 0.2 Basophils # 0.0 Nucleated Red Blood Cells # 0.0 Prothrombin Time 13.1 Prothrombin Time Ratio 1.0 INR International Normalized Ratio 0.99 Activated Partial Thromboplast Time 30.7 Sodium Level 137 Potassium Level 3.8 Chloride Level 106 Carbon Dioxide Level 29 Anion Gap 6 L Blood Urea Nitrogen 3 L Creatinine 0.56 Glucose Level 91 Calcium Level 9.0 Phosphorus Level 3.8 Magnesium Level 1.9 Total Bilirubin 0.3 Direct Bilirubin 0.00 Indirect Bilirubin 0.3 Aspartate Amino Transf (AST/SGOT) 32 Alanine Aminotransferase (ALT/SGPT) 45 Alkaline Phosphatase 85 B-Type Natriuretic Peptide 50 Total Protein 6.3 Albumin 3.3 Globulin 3.00 Albumin/Globulin Ratio 1.10 Medications Medications Current Medications Morphine Sulfate (morphine) 4 mg Q3H PRN IV Pain Last administered on 10:25; Admin Dose 4 MG; Start 03/26/17 at 09:30 Ondansetron HCl 4 mg 4 mg Q6H PRN IV NAUSEA AND/OR VOMITING Last administered on 03/27/17 11:59; Admin Dose 4 MG; Start 03/26/17 at 09:30 Potassium Chloride/Dextrose/ Sod Cl (D5-1/2ns + KCl 20 Meq) 1,000 ml @ 100 mls/ hr Q10H IV Last administered on 03/28/17 09:41; Admin Dose 100 MLS/HR; Start 03/27/17 at 11:24 Acetaminophen/ Hydrocodone Bitart ([place] (5/325)) 1 tab Q4H PRN PO PAIN LEVEL 4 -7; Start 03/27/17 at 11:30 Acetaminophen/ Hydrocodone Bitart ([place] (5/325)) 2 tab Q4H PRN PO PAIN LEVEL 7 -10; Start 03/27/17 at 11:30 Hydromorphone HCl (Dilaudid) 0.5 mg Q2H PRN IV PAIN Last administered on 16:38; Admin Dose 0.5 MG; Start 03/27/17 at 11:30 Hydromorphone HCl (Dilaudid) 1 mg Q2H PRN IV PAIN Last administered on 09:42; Admin Dose 1 MG; Start 03/27/17 at 11:30 Docusate Sodium (Colace) 100 mg BID PRN PO CONSTIPATION; Start 03/27/17 at 11: 30 Bisacodyl (Dulcolax Supp) 10 mg BID PRN [place] CONSTIPATION; Start 03/27/17 at 11: 30 Sodium Biphosphate/ Sodium Phosphate (Fleet Enema) 133 ml BID PRN [place] CONSTIPATION; Start 03/27/17 at 11:30 Famotidine (Pepcid Iv) 20 mg DAILY IV Last administered on 03/28/17 08:36; Admin Dose 20 MG; Start 03/28/17 at 09:00 Enoxaparin Sodium (Lovenox) 40 mg DAILY SC Last administered on 03/28/17 08:40 ; Admin Dose 40 MG; Start 03/28/17 at 09:00 BLAS CORTES NP Mar 28, 2017 11:40
[2017-03-28 14:00] VITALS: BP 106/66; RESP 18
[2017-03-28 19:55] VITALS: BP 103/70; RESP 16
--- NOTE | 2017-03-28 20:28 | PN ---
Date/Time of Note Date/Time of Note DATE: 03/28/17 TIME: 20:28 Assessment/Plan Lines/Catheters IV Catheter Type (from Nrsg): Peripheral IV Ramirez in Place (from Nrs): No Assessment/Plan Assessment/Plan [facility] Progress Note Date of Service: 03/28/2017 Place of service: [facility] 6 floor Today's Assessment & Plan: Overall stable and doing well. Abdomen remains benign. Main issue is pain control. Awaiting further return of bowel function. No indication for acute surgical intervention. With above assessment, I've recommended the following for today: 1. Continue current cares 2. Keep in-house 3. Increase activity 4. Increase incentive spirometry 5. Advance diet as tolerated 6. Labs in a.m. Thank you again for your great care of this very pleasant patient and wonderful family. If there are any questions, please feel free to call me at [phone]. Nature of presenting problem: High severity Please note that, given the multiple number of diagnoses or management options, the moderate to extensive amount and/or complexity of data needed to be reviewed , and moderate to high risk of complications and/or morbidity or mortality, this qualifies as high complexity type of decision-making. Disclaimer: Inadvertent spelling and grammatical errors are likely due to EHR/ dictation software use and do not reflect on the quality of delivered patient care. Also, please note that the electronic time recorded on this node does not necessarily reflect the actual time of the visit. Updated clinical summary: A very pleasant 26-year-old lady with choledocholithiasis and possible cholelithiasis versus gallbladder polyp. Status post ERCP with sphincterotomy and stone removal (no stent) [facility] 02/27/[address] Stiles. Discharged home 02/28/2017. Repeat ER visit without admission [facility] 03/23/2017. Repeat ER visit with admission to [facility] 03/26/2017. Comorbidities: 1. Acute cholecystitis with gallbladder hydrops and with recent choledocholithiasis and possible cholelithiasis versus gallbladder polyp. Status post ERCP with sphincterotomy and stone removal (no stent) [facility] 02/27/[address] Stiles. S/p an otherwise uncomplicated laparoscopic cholecystectomy with findings of acute cholecystitis with gallbladder hydrops 03/28/17 at [facility]. 2. BMI 34.7 3. Choledocholithiasis with intrahepatic and extrahepatic bile duct dilatation. Status post ERCP with sphincterotomy and stone removal (no stent) [facility] 02/27/[address] Stiles. Discharged home 2016. Repeat ER visit without admission [facility] 2016. Repeat ER visit with admission to [facility] 03/26/2017. Subjective: No major events or complaints; only major issue has been abd pain and it seems to be under control with medications; no n/v/d; no sob or cp; - flatus; - BM; - activity Objective: Vitals: See below I's & O's: See below Exam: GENERAL: On exam, the patient was lying in bed and appeared to be comfortable and in no acute distress. ABDOMEN: Soft, nontender and nondistended. Incision dressings are clean, dry and intact without any evidence of obvious underlying erythema, edema, discharge , or hernia. There are no peritoneal signs or guarding. SKIN: Skin appears to be pink and feels warm to touch. NEUROLOGIC: Patient is awake, alert, and follows commands appropriately. Labs: See below Exam/Review of Systems Vital Signs Vitals Vital Signs Date Time Temp Pulse Resp B/P Pulse Ox O2 Delivery O2 Flow Rate FiO2 03/28/17 19:55 98.0 76 16 103/70 99 03/28/17 08:15 Nasal Cannula 2.0 Intake and Output 03/27/17 03/27/17 03/28/17 15:00 23:00 07:00 Intake Total 550 ml 1760 ml 1600 ml Output Total 10 ml Balance 540 ml 1760 ml 1600 ml Results Result Diagram: 03/28/17 0554 03/28/17 0554 LEXX MOSS M.D. Mar 28, 2017 20:28
[2017-03-29] MEDS: HYDROmorphONE 1 MG/ML SYG IV PRN (05:19)
[2017-03-29 06:39] LABS: BASOPHILS % 0.3 % (0.0-2.0); EOSINOPHILS # 0.3 10^3/ul (0.0-0.5); EOSINOPHILS % 3.4 % (0.0-7.0); HEMATOCRIT 35.5 % (37.0-47.0); HEMOGLOBIN 11.5 g/dl (12.0-16.0); LYMPHOCYTES # 2.2 10^3/ul (0.8-2.9); LYMPHOCYTES % 29.5 % (15.0-51.0); MEAN CORPUSCULAR HEMOGLOBIN 28.3 pg (29.0-33.0); MEAN CORPUSCULAR HGB CONC 32.4 g/dl (32.0-37.0); MEAN CORPUSCULAR VOLUME 87.2 fl (82.0-101.0); MEAN PLATELET VOLUME 10.1 fl (7.4-10.4); MONOCYTE # 0.5 10^3/ul (0.3-0.9); NEUTROPHIL # 4.3 10^3/ul (1.6-7.5); NEUTROPHILS % 59.5 % (39.0-77.0); PLATELET COUNT 299 10^3/UL (140-415); RED BLOOD COUNT 4.07 10^6/ul (4.20-5.40); RED CELL DISTRIBUTION WIDTH 13.2 % (11.5-14.5); WHITE BLOOD COUNT 7.3 10^3/ul (4.8-10.8)
[2017-03-29 07:13] LABS: ALBUMIN 3.5 g/dl (3.3-4.9); ALBUMIN/GLOBULIN RATIO 1.09; BILIRUBIN,INDIRECT 0.2 mg/dl (0-1.1); BILIRUBIN,TOTAL 0.2 mg/dl (0.2-1.3); CALCIUM 9.2 mg/dl (8.4-10.2); CREATININE 0.57 mg/dl (0.44-1.00); POTASSIUM 3.5 mmol/L (3.5-5.1); TOTAL PROTEIN 6.7 g/dl (6.1-8.1)
[2017-03-29 07:18] LABS: MAGNESIUM 1.8 mg/dl (1.7-2.5); PHOSPHORUS 4.3 mg/dl (2.5-4.9)
[2017-03-29 07:45] VITALS: BP 112/84; PULSE 74; RESP 18
[2017-03-29] MEDS: FAMOTIDINE 20 MG INJ IV SCH (08:21)
[2017-03-29] MEDS: ENOXAPARIN 40 MG/0.4 ML SYG SC SCH (08:31)
--- NOTE | 2017-03-29 10:07 | PDOCDIS ---
Discharge Instructions DIAGNOSIS Discharge Diagnosis Acute cholecystitis. Status post laparoscopic cholecystectomy. CONDITION Patient Condition: Stable HOME CARE INSTRUCTIONS: Diet Instructions: RegularSpecial Diet: Preferably low-cholesterol FOLLOW UP/APPOINTMENTS Follow-up Plan Filippo Valadez MD Specialty General Surgery Office Address [address] [place] [id number] Office OTHER ORDERS: Other Orders: 1. Regular, preferably low-cholesterol diet as tolerated. 2. Keep incisions clean and dry. May shower. Avoid tub baths and swimming for 2 weeks. Use mild soap and pat dry the incisions. 3. Take medications as needed for pain. 4. Call the surgeon or go to the nearest ER if you have severe abdominal pain despite pain medications. 5. Call the surgeon or go to the nearest ER if you notice any bleeding or secretions coming out of the incision sites. Also call the surgeon if you notice any blood in stool, if you have persistent fevers, or any other unusual signs or symptoms. 6. Follow-up with the surgeon Dr. Valadez in 7 days for incision check. 7. Avoid heavy lifting [more than 25 pounds] for 8 weeks. BLAS CORTES NP Mar 29, 2017 10:07
[2017-03-29] MEDS ORDERED: HYDR-3498 PO (10:08)
[2017-03-29] MEDS ORDERED: DOCU-144 PO (10:08)
--- NOTE | 2017-03-29 11:40 | DS ---
DATE OF ADMISSION: 03/26/2017 DATE OF DISCHARGE: 03/29/2017 FINAL DIAGNOSES: 1. Acute cholecystitis, status post laparoscopic cholecystectomy. 2. History of cholelithiasis with intrahepatic and extrahepatic duct dilatation, status post endoscopic retrograde cholangiopancreatogram with sphincterotomy and stone removal on 02/27/2017. 3. Obesity. Body mass index of 36.3 kg/m square. CONSULTANTS: 1. Dr. Filippo Valadez, General Surgery. 2. Dr. Almas Stiles, Gastroenterology. HOSPITAL COURSE: This is a 26-year-old female with past medical history of cholelithiasis and choledocholithiasis, who present to the emergency department complaining of right upper quadrant pain of 2 days' duration. There was also reported nausea, and nonbloody, nonbilious vomiting. The patient denied any fevers, chills, dyspnea, or chest pain. The patient was admitted here last month where she had an endoscopic retrograde cholangiopancreatogram with stone removal and no stent placed. The patient was instructed to have outpatient followup for elective cholecystectomy. In the emergency room, the patient was noticed to have minimal leukocytosis. The patient underwent an abdominal ultrasound that showed mild hepatomegaly and small gallstones in the gallbladder with no evidence of cholecystitis, but dilated bile ducts. The patient also underwent an abdominal MRI that showed small gallstones seen on ultrasound, are not well seen on the MRI. The abdominal MRI was negative for any evidence of common bile duct stones or biliary obstruction. Both Gastroenterology and General Surgery were involved in the patient's case. The patient was taken to the OR on 03/27/2017, and the patient underwent a laparoscopic cholecystectomy. Postoperatively, the patient was started on clear liquid diet and the patient's diet was advanced as tolerated to a regular consistency diet. The patient had some initial difficulty with advancement in the diet and the patient's diet was changed back to clear liquids. Nevertheless, the patient is currently taking a regular consistency diet without any significant gastrointestinal symptoms. The patient was noticed to have obesity, with a BMI 36.3 kg/m square. The patient was advised on weight reduction. The patient had a stable hospital course. The patient was cleared by General Surgery to be discharged home. DISCHARGE DISPOSITION/PLAN: The patient will be discharged home today. The patient was instructed to take a regular preferably low-cholesterol diet as tolerated. She was instructed to keep the incisions clean and dry. Patient was instructed that she may shower, but avoid tub baths and swimming for 2 weeks. She was instructed to use mild soap and pat dry the incisions. She was instructed to take pain medications as needed for pain. She was instructed to call the surgeon or go to the nearest emergency room if she has severe abdominal pain despite pain medications. The patient was instructed to call the surgeon or go to the nearest emergency room if she notices any bleeding or secretions coming out of the incision sites. The patient was instructed to call the surgeon if she notices any blood in stool, or if she has any persistent fevers or any other unusual signs/symptoms. The patient was instructed to follow up with Dr. Valadze in 7 days for incision check. She was instructed to avoid heavy lifting more than 25 pounds for at least 8 weeks. The patient verbalized understanding of the discharge instructions. DISCHARGE CONDITION: Stable. DISCHARGE MEDICATIONS: 1. Colace 100 mg p.o. b.i.d. 2. Apex 5/325, 1 tablet p.o. q.4 hours p.r.n. pain (#14 tablets). DIAGNOSTIC DATA AND PROCEDURES: 1. 03/27/2017, laparoscopic cholecystectomy. 2. Abdominal ultrasound: Mild hepatomegaly, small gallstones in the gallbladder. No evidence of cholecystitis. Dilated bile duct. Correlation with MRCP should be considered. 3. Abdominal MRI: Negative for evidence of common bile duct stones or biliary obstruction. 4. Latest CBC: WBC 7.3, hemoglobin 11.5, hematocrit 35.5, platelet count 299. 5. Latest CMP: Sodium 139, potassium 3.5, chloride 104, carbon dioxide 20, anion gap 10, BUN 6, creatinine 0.5, and glucose 89, calcium 9.2, phosphorus 4.3, magnesium 1.8. Total bilirubin 0.2, direct bilirubin 0.2, AST 27, ALT 44, alkaline phosphatase of 47. At this time, I would like to thank all the consultants for seeing the patient, doing the necessary procedures, and providing recommendations. The case and management of this patient was fully discussed with Dr. Zac Lira. Approximately 35 minutes were spent on coordinating the discharge on this patient. Dictated By: Rishi Chahal NP /ramin/augustine /Document#: [id number] MTDD
== END 2017-03-29 14:45 | disposition home or self-care (01) | DRG 419 ==
LOC: E/R 01:59 → MS2 05:52
PROVIDERS: ADMIT Internal Medicine; ATTEND Internal Medicine
PROC: 0FT44ZZ Resection of Gallbladder, Percutaneous Endoscopic Approach (ICD-10-PCS; principal; 2017-03-27 09:30)
DX: K80.00 Calculus of gallbladder with acute cholecystitis without obstruction (principal); E66.9 Obesity, unspecified; Z68.36 Body mass index [BMI] 36.0-36.9, adult; D72.829 Elevated white blood cell count, unspecified
CPT/HCPCS: 74181; 76705; 80053; 81001; 83690; 83735; 83880; 84100; 84703; 85025; 85610; 85730; 88304; J0690; J1170; J1650; J2175; J2270; J2405; J2710; J2765; J3480; J7030; J7999

== ENCOUNTER 2017-04-11 15:20 | Outpatient (CLI) | payer OTHER ==
[~2017-04-11] VITALS: Ht 162.6 cm; Wt 93.2 kg
[~2017-04-11 15:20] MED LIST changes: +DOCU-144 PO; +HYDR-3498 PO; -HYDR-906 PO; -IBUP-1542 PO
[2017-04-11 15:26] VITALS: BP 104/65; PULSE 73; RESP 18; Ht 162.6 cm; Wt 93.2 kg
--- NOTE | 2017-04-11 15:52 | PN ---
Date/Time of Note Date/Time of Note DATE: 04/11/17 TIME: 15:41 Assessment/Plan Assessment/Plan Assessment/Plan [facility] Progress Note Date of Service: 04/11/2017 Place of service: [facility] Today's Assessment & Plan: Overall stable and doing well. Abdomen remains benign. No further issues with pain control. No indication for acute surgical intervention. Again reviewed healthy life choices and ways to permanently achieve that (15 min counselling time). With above assessment, I've recommended the following for today: 1. F/u with PCP 2. F/u with us prn Thank you again for your great care of this very pleasant patient and wonderful family. If there are any questions, please feel free to call me at [phone]. Nature of presenting problem: High severity Please note that, given the multiple number of diagnoses or management options, the moderate to extensive amount and/or complexity of data needed to be reviewed , and moderate to high risk of complications and/or morbidity or mortality, this qualifies as high complexity type of decision-making. Disclaimer: Inadvertent spelling and grammatical errors are likely due to EHR/ dictation software use and do not reflect on the quality of delivered patient care. Also, please note that the electronic time recorded on this node does not necessarily reflect the actual time of the visit. Updated clinical summary: A very pleasant 26-year-old lady with choledocholithiasis and possible cholelithiasis versus gallbladder polyp. Status post ERCP with sphincterotomy and stone removal (no stent) [facility] 02/27/[address] Stiles. Discharged home 02/28/2017. Repeat ER visit without admission [facility] 03/23/2017. Repeat ER visit with admission to [facility] 03/26/2017. S/p an otherwise uncomplicated laparoscopic cholecystectomy with findings of acute cholecystitis with gallbladder hydrops at [facility]. Comorbidities: 1. Acute cholecystitis with gallbladder hydrops and with recent choledocholithiasis and possible cholelithiasis versus gallbladder polyp. Status post ERCP with sphincterotomy and stone removal (no stent) [facility] 02/27/[address] Stiles. S/p an otherwise uncomplicated laparoscopic cholecystectomy with findings of acute cholecystitis with gallbladder hydrops 03/28/17 at [facility]. 2. BMI 34.7 3. Choledocholithiasis with intrahepatic and extrahepatic bile duct dilatation. Status post ERCP with sphincterotomy and stone removal (no stent) [facility] 02/27/[address] Stiles. Discharged home 2016. Repeat ER visit without admission [facility] 2016. Repeat ER visit with admission to [facility] 03/26/2017. Subjective: No major events or complaints since d/c home; no further major abd pain and no longer on pain medications; no n/v/d; no sob or cp; + flatus; + BM; + activity Objective: Vitals: See below Exam: GENERAL: On exam, the patient was lying in bed and appeared to be comfortable and in no acute distress. ABDOMEN: Soft, nontender and nondistended. Incisions are clean, dry and intact without any evidence of obvious erythema, edema, discharge, or hernia. There are no peritoneal signs or guarding. SKIN: Skin appears to be pink and feels warm to touch. NEUROLOGIC: Patient is awake, alert, and follows commands appropriately. Labs: See below Exam/Review of Systems Vital Signs Vitals Vital Signs Date Time Temp Pulse Resp B/P Pulse Ox O2 Delivery O2 Flow Rate FiO2 04/11/17 15:26 97.9 73 18 104/65 99 Room Air LEXX MOSS M.D. Apr 11, 2017 15:52
== END 2017-04-11 16:55 | disposition home or self-care (01) ==
LOC: HPC 15:20
PROVIDERS: ATTEND Transplant Surgery
DX: K80.42 Calculus of bile duct with acute cholecystitis without obstruction (principal)
CPT/HCPCS: G0463

== ENCOUNTER 2018-11-14 10:36 | Emergency (ER) | payer OTHER ==
[~2018-11-14] VITALS: Ht 157.5 cm; Wt 97.7 kg
[~2018-11-14 10:36] MED LIST changes: -HYDR-3498 PO
[2018-11-14 10:45] VITALS: BP 138/65; PULSE 88; RESP 20; Ht 157.5 cm; Wt 97.7 kg
[2018-11-14] MEDS ORDERED: ONDANSETRON (ODT) 4 MG TAB ODT STA (11:04)
[2018-11-14] MEDS ORDERED: HYDROCODONE/APAP (5/325) TAB PO ONE (11:30)
[2018-11-14] MEDS ORDERED: NAPR-985 PO (12:50)
--- NOTE | 2018-11-14 13:17 | ERD ---
ER Documentation Chief Complaint Chief Complaint PT with R ankle pain, unable to move foot, some deformity noted. HPI 28-year-old female presenting with right ankle pain. Patient states that she fell when walking into the garage and she twisted her right foot. This happened earlier today. She has not taken medications for pain. She has pain with ambulation. Denies medical problems. NKDA. Surgical history and cholecystectomy. Social history denies ROS All systems reviewed and are negative except as per history of present illness. Medications Home Meds Active Scripts Naproxen* (Naprosyn*) 500 Mg Tablet, 500 MG PO BID PRN for PAIN AND/OR INFLAMMATION, #30 TAB Prov:THERESA MARQUEZ PA-C 11/14/18 Docusate Sodium* (Colace*) 100 Mg Capsule, 100 MG PO BID for 10 Days, #60 CAP Prov:BLAS CORTES NP 03/29/17 Allergies Allergies: Coded Allergies: No Known Allergy (Unverified , 03/26/17) PMhx/Soc History of Surgery: Yes (mar 2016, november 2012) Anesthesia Reaction: No Hx Neurological Disorder: No Hx Respiratory Disorders: No Hx Cardiac Disorders: No Hx Psychiatric Problems: No Hx Miscellaneous Medical Probl: No Hx Alcohol Use: No Hx Substance Use: No Hx Tobacco Use: No FmHx Family History: No diabetes, No coronary disease, No other Physical Exam Vitals Vital Signs Date Temp Pulse Resp B/P (MAP) Pulse Ox O2 O2 Flow FiO2 Time Delivery Rate 11/14/18 98.2 88 20 138/65 100 10:45 (89) Physical Exam GENERAL: The patient is well-appearing, well-nourished, in no acute distress CHEST: Clear to auscultation bilaterally. There are no rales, wheezes or rhonchi. HEART: Regular rate and rhythm. No murmurs, clicks, rubs or gallops. ABDOMEN:Soft, nontender and nondistended. Good bowel sounds. No rebound or guarding. No gross peritonitis. No gross organomegaly or masses. EXTREMITIES: TTP to right lateral ankle NEUROLOGIC: Alert and oriented. Cranial nerves II through XII intact. Motor strength in all 4 extremities with 5 out of 5 strength. Sensation grossly intact. Normal speech and gait. SKIN: There is no apparent rash or petechiae. The skin is warm and dry. Results 24 hrs Current Medications Medications Dose Sig/Wanda Start Time Status Last (Trade) Ordered Route PRN Stop Time Admin Dose Reason Admin 1 tab ONCE ONCE 11/14/18 DC 11/14/18 Acetaminophen PO 11:30 11/14/18 11:13 / 11:31 Hydrocodone Bitart (Mcdonald (5/325)) Ondansetron 4 mg ONCE STAT 11/14/18 DC 11/14/18 HCl (Zofran ODT 11:04 11/14/18 11:13 Odt) 11:06 Procedures/MDM DIAGNOSTIC IMAGING REPORT Patient: BUSTER FLOWERS : 1990 Age: 28 Sex: F MR #: [id number] DOS: 11/14/18 1104 Ordering MD: ANGELLA MARQUEZ PA-C Location: [facility] Room/Bed: PROCEDURE: XR Ankle. CLINICAL INDICATION: Pain. TECHNIQUE: Right ankle x-rays, 3 views. COMPARISON: Right foot x-rays 11/14/2018. FINDINGS: Bones: Bony cortices are smooth and contiguous. Joint(s): Normal. Soft tissues: Mild lateral soft tissue edema is observed. IMPRESSION: Mild lateral soft tissue edema. No evidence of fracture. DIAGNOSTIC IMAGING REPORT Patient: BUSTER FLOWERS : 1990 Age: 28 Sex: F MR #: [id number] DOS: 11/14/18 1104 Ordering MD: ANGELLA MARQUEZ PA-C Location: [facility] Room/Bed: PROCEDURE: XR Foot. CLINICAL INDICATION: Pain. TECHNIQUE: Right foot x-ray(s), three views. COMPARISON: Right ankle x-rays 11/14/2018. FINDINGS: Bones: Bony cortices are smooth and contiguous. Joint(s): Intact. There are no substantial degenerative changes. Soft tissues: Grossly unremarkable. IMPRESSION: Unremarkable right foot x-rays. DIAGNOSTIC IMAGING REPORT Patient: BUSTER FLOWERS : 1990 Age: 28 Sex: F MR #: [id number] DOS: 11/14/18 1104 Ordering MD: ANGELLA MARQUEZ PA-C Location: [facility] Room/Bed: PROCEDURE: XR Knee. CLINICAL INDICATION: Pain. TECHNIQUE: Right knee x-rays, three views. COMPARISON: None. FINDINGS: Bones: Bony cortices are smooth and contiguous. Joint(s): Intact. No substantial degenerative changes. No joint effusion. Soft tissues: Unremarkable. IMPRESSION: Unremarkable right knee x-rays. ER Course: elmer wrap and crutches given in ED MDM: 28-year-old female presenting with pain to right ankle. I have low suspicion for acute fracture dislocation. Patient's x-rays are within normal limits. Patient's pain is likely associated due to sprain. Patient is recommended to ice and elevate. Patient is discharged with supportive medications. Patient is told if symptoms change or worsen to return immediately to the ER. All questions answered at discharge Departure Diagnosis: Primary Impression: Ankle pain Condition: Stable Patient Instructions: Sprain, Ankle, With X-Ray Referrals: [facility] YOU HAVE RECEIVED A MEDICAL SCREENING EXAM AND THE RESULTS INDICATE THAT YOU DO NOT HAVE A CONDITION THAT REQUIRES URGENT TREATMENT IN THE EMERGENCY DEPARTMENT. FURTHER EVALUATION AND TREATMENT OF YOUR CONDITION CAN WAIT UNTIL YOU ARE SEEN IN YOUR DOCTORS OFFICE WITHIN THE NEXT 1-2 DAYS. IT IS YOUR RESPONSIBILITY TO MA KE AN APPOINTMENT FOR FOLOW-UP CARE. IF YOU HAVE A PRIMARY DOCTOR --you should call your primary doctor and schedule an appointment IF YOU DO NOT HAVE A PRIMARY DOCTOR YOU CAN CALL OUR PHYSICIAN REFERRAL HOTLINE AT IF YOU CAN NOT AFFORD TO SEE A PHYSICIAN YOU CAN CHOSE FROM THE FOLLOWING [facility] [address] [facility]. [facility] [address] [facility] [address] [facility] [facility] [address] [facility]. [facility] [address] [facility]. [facility]. [address] Additional Instructions: FOLLOW UP WITH YOUR PRIMARY CARE PHYSICIAN TOMORROW.Return to this facility if you are not improving as expected. THERESA MARQUEZ PA-C November 14, 2018 13:17
== END 2018-11-14 13:19 | disposition home or self-care (01) ==
LOC: FTE 10:36
DX: M25.571 Pain in right ankle and joints of right foot (principal)
CPT/HCPCS: 73562; 73610; 73630; Z7502; Z7610